=== PATIENT | male | born 1940 | race Caucasian/White ===

== ENCOUNTER → 2016-11-13 | Outpatient (CLI) | payer MEDICARE, OTHER | LOC: SL 21:11 | PROVIDERS: ATTEND Family Medicine | DX: G47.33 Obstructive sleep apnea (adult) (pediatric) (principal); R06.83 Snoring ==

== ENCOUNTER → 2016-12-21 | Outpatient (CLI) | payer MEDICARE, OTHER | END | disposition home or self-care (01) | LOC: GMAJ 12:28 | PROVIDERS: ATTEND Family Medicine | DX: N40.1 Benign prostatic hyperplasia with lower urinary tract symptoms (principal) ==

== ENCOUNTER 2017-02-18 06:13 | Day surgery (SDC) | payer MEDICARE, OTHER ==
[~2017-02-18 06:13] MED LIST: LACTATED RINGERS 1,000 ML ONE
[2017-02-18 09:11] VITALS: BP 128/68; TEMP 97.4; O2SAT 95
[2017-02-18] MEDS ORDERED: PROPOFOL 200 MG/20 ML VIAL IV ONE (12:00)
--- NOTE | 2017-02-18 13:40 | OP ---
DATE OF PROCEDURE: 02/18/17 PREOPERATIVE DIAGNOSIS: 1. Colon cancer screen. POSTOPERATIVE DIAGNOSIS: 1. Diverticulosis of the sigmoid colon. PROCEDURE: 1. Colonoscopy. SURGEON: Arnulfo Valdez MD. ANESTHESIA: MAC by Sharif Ortiz CRNA. ESTIMATED BLOOD LOSS: None. COMPLICATIONS: None apparent. TECHNIQUE: After informed consent was obtained from the patient, the patient was taken to the Endoscopy Suite and put in the left lateral decubitus position. After adequate IV sedation was obtained, a digital rectal exam was performed which revealed normal sphincter tone, no intraluminal masses, and a smooth, 1+, anodular prostate. The colonoscope was then passed with good visualization all the way through the colon. The bowel prep was good. The cecum was identified by the presence of ileocecal valve and appendiceal orifice. The scope was then withdrawn slowly over the next 10 minutes and a good look at the entire colonic wall was obtained. There were a few scattered diverticula in the sigmoid region. Otherwise, no pathology was found. The scope was removed. The patient tolerated the procedure well. The patient was transported to the outpatient area in good condition. He will followup with me on a p.r.n. basis. He is encouraged to consume a high fiber diet. #[id number] [facility]
== END 2017-02-18 09:05 | disposition home or self-care (01) ==
LOC: AMB 06:13
PROVIDERS: ATTEND Family Medicine
DX: Z12.11 Encounter for screening for malignant neoplasm of colon (principal); K57.30 Diverticulosis of large intestine without perforation or abscess without bleeding; E78.00 Pure hypercholesterolemia, unspecified; I10 Essential (primary) hypertension; I25.10 Atherosclerotic heart disease of native coronary artery without angina pectoris; G47.33 Obstructive sleep apnea (adult) (pediatric); N40.0 Benign prostatic hyperplasia without lower urinary tract symptoms; Z95.5 Presence of coronary angioplasty implant and graft; Z88.8 Allergy status to other drugs, medicaments and biological substances; Z79.02 Long term (current) use of antithrombotics/antiplatelets; Z79.82 Long term (current) use of aspirin; Z79.899 Other long term (current) drug therapy
CPT/HCPCS: 00810; G0121; J3490; J7120

== ENCOUNTER → 2017-03-21 | Outpatient (CLI) | payer MEDICARE, OTHER | END | disposition home or self-care (01) | LOC: RESP 14:34 | PROVIDERS: ATTEND Physician Assistant | DX: R00.1 Bradycardia, unspecified (principal) ==

== ENCOUNTER → 2017-03-25 | Outpatient (CLI) | payer MEDICARE, OTHER ==
--- NOTE | 2017-03-25 11:36 | CT ---
EXAM DESCRIPTION: Head CLINICAL HISTORY: 77 years, Male, DOUBLE VISION COMPARISON: None TECHNIQUE: Head CT was performed without IV contrast. This exam was performed according to our departmental dose-optimization program, which includes automated exposure control, adjustment of the mA and/or kV according to patient size and/or use of iterative reconstruction technique. FINDINGS: No acute intracranial hemorrhage. There is no midline shift or other mass effect. The ventricles and basilar cisterns are well maintained. No sellar or suprasellar mass is identified. There are mild chronic ischemic changes in the perirenal right matter, but no cortical edema or sulcal effacement is seen to suggest acute cortical infarct. No posterior fossa lesion. Vascular calcifications are noted. Visualized paranasal sinuses and orbits are clear. There is no calvarial fracture. IMPRESSION: Vascular calcifications and mild chronic ischemic changes, but no additional intracranial abnormality to explain patient symptoms. If symptoms persist or worsen, MRI may be helpful. Electronically signed by: Jeff Pitts MD 03/25/2017 11:35 AM CDT
== END | disposition home or self-care (01) ==
LOC: CT 11:12
PROVIDERS: ATTEND Family Medicine
DX: H53.2 Diplopia (principal)

== ENCOUNTER → 2017-03-27 | Outpatient (CLI) | payer MEDICARE, OTHER ==
--- NOTE | 2017-03-27 15:12 | MRI ---
Procedure: MR BRAIN WITHOUT IV CONTRAST Exam Date: 03/27/2017 Ordering Provider: KAT HICKEY Clinical Indication: DIPLOPIA Comparison: 03/25/2017 CT head Technique: Multiplanar MRI of the brain was obtained without the administration of IV contrast. Findings: Mild cerebral and cerebellar volume loss. There is no midline shift or hydrocephalus. No significant findings to suggest chronic ischemic small vessel disease. There is normal signal in the cerebellum. There is normal signal within the brainstem. There is no evidence of an acute infarct. There is no parenchymal hemorrhage. The pituitary gland is normal in size. There are no pineal masses. There are normal intracranial vascular flow voids. The craniocervical junction is unremarkable. Paranasal sinuses are unremarkable. The orbits are unremarkable. IMPRESSION: 1. No acute intracranial abnormality demonstrated. Electronically signed by: Ishan Metcalf MD 03/27/2017 3:12 PM CDT
== END | disposition home or self-care (01) ==
LOC: MRI 08:17
PROVIDERS: ATTEND Family Medicine
DX: H53.2 Diplopia (principal)

== ENCOUNTER → 2017-03-28 | Outpatient (CLI) | payer MEDICARE, OTHER | END | disposition home or self-care (01) | LOC: LAB.O 12:29 | PROVIDERS: ATTEND Psychiatry & Neurology Neurology | DX: F90.9 Attention-deficit hyperactivity disorder, unspecified type (principal); M33.90 Dermatopolymyositis, unspecified, organ involvement unspecified; F81.9 Developmental disorder of scholastic skills, unspecified; E11.9 Type 2 diabetes mellitus without complications; R53.83 Other fatigue; R50.9 Fever, unspecified ==

== ENCOUNTER → 2017-04-09 | Outpatient (CLI) | payer MEDICARE, OTHER ==
--- NOTE | 2017-04-10 11:58 | CT ---
EXAM DESCRIPTION: Chest w/Contrast CLINICAL HISTORY: MALIGNANT NEOPLASM OF THYMUS COMPARISON: May 23, 2015 TECHNIQUE: Post IV contrasted multidetector CT imaging of the chest. Multiplanar reconstructions were provided.This exam was performed according to our department minimal dose optimization program which includes automated exposure control, adjustment of mA and/or kV according to patient size and/or use of iterative reconstructed techniques. FINDINGS: No residual thymic tissue is noted on today's exam. Normal fat seen within the anterior aspect of the superior mediastinum. There remains atherosclerotic disease within the coronary vessels, aortic arch and origins of the great vessels. Heart size is at the upper limits of normal. No pericardial disease. Trachea is midline. Negative for filling defect. Bilateral lungs demonstrate no evidence of suspicious nodular mass. No pleural disease. The osseous structures on today's study are unremarkable. IMPRESSION: No residual thymic tissue on today's exam or evidence of recurrence. Severe coronary artery disease. Electronically signed by: Red Arshad MD 04/10/2017 11:57 AM CDT
== END | disposition home or self-care (01) ==
LOC: CT 10:48
PROVIDERS: ATTEND Psychiatry & Neurology Neurology
DX: C37 Malignant neoplasm of thymus (principal)

== ENCOUNTER 2017-07-02 00:56 | Emergency (ER) | payer MEDICARE, OTHER ==
[2017-07-02 01:14] VITALS: TEMP 98.7
--- NOTE | 2017-07-02 01:24 | ED.PDOC ---
History of Present Illness - General Chief Complaint: General Stated Complaint: jaundice, SOB, dizziness Time Seen by Provider: 07/02/17 01:22 Exam Limitations: no limitations - History of Present Illness Initial Comments: James Caba 77 y/o male seen initially at [facility] with complaints of feeling weak,jaundiced,difficulty walking and was diagnosed 6 months ago with presumed myasthenia gravis and had been receiving iv infusion several times in the past at [facility].Initial labs done at [facility] cbc- WBC-13.3 no left shift,hgb-8.9 [id number] cr-1.9 total bilirubin-8.3 sgot/ast-47 Lactic acid-3.5 cardiac enzymes -normal.He was brought per daughters request for ct/abd pelvis and his primary md is from here. Timing/Duration: other - 6 months ago Improving Factors: nothing Worsening Factors: movement Associated Symptoms: loss of appetite, malaise, nausea/vomiting Allergies/Adverse Reactions: Allergies NO KNOWN ALLERGY Allergy (Verified 07/02/17 01:14) Home Medications: Ambulatory Orders Aspirin [Baby Aspirin] 81 mg PO LUCRECIA-OTH-DAY 12/27/14 Clopidogrel Bisulfate [Plavix] 75 mg PO QD 12/27/14 Ergocalciferol [Vitamin D] 50,000 unit PO WKLY 12/27/14 Tadalafil [Cialis] 20 mg PO PRN 12/27/14 Amlodipine Besylate [Norvasc] 5 mg PO DAILY 12/29/14 Losartan Potassium 100 mg PO DAILY 12/29/14 Simvastatin 40 mg PO BEDTIME 12/29/14 Duloxetine HCl [Cymbalta] 60 mg PO DAILY 07/02/17 Nebivolol HCl [Bystolic] 15 mg PO DAILY 07/02/17 Silodosin [Rapaflo] 8 mg PO DAILY 07/02/17 Vitamin E 400 unit PO DAILY 07/02/17 Review of Systems - Review of Systems Constitutional: States: malaise, weakness EENTM: States: no symptoms reported Respiratory: States: no symptoms reported Cardiology: States: no symptoms reported Gastrointestinal/Abdominal: States: see HPI Genitourinary: States: no symptoms reported Musculoskeletal: States: see HPI, back pain Skin: States: no symptoms reported Endocrine: States: no symptoms reported Hematologic/Lymphatic: States: anemia Past Medical History (General) - Patient Medical History Hx Seizures: No Hx Stroke: No Hx Dementia: No Hx Asthma: No Hx of COPD: No Hx Cardiac Disorders: Yes Hx Congestive Heart Failure: No Hx Pacemaker: No Hx Hypertension: Yes Hx Thyroid Disease: No Hx Diabetes: No Hx Gastroesophageal Reflux: No Hx Renal Disease: No Hx Cancer: No Hx of HIV: No Hx Hepatitis C: No Hx MRSA: No Surgical History: no surgical history, other - Social History Hx Tobacco Use: No Hx Chewing Tobacco Use: No Hx Alcohol Use: Yes - quit 1 year ago Hx Substance Use: No Hx Substance Use Treatment: No Hx Depression: Yes Feels Threatened In Home Enviroment: No Feels Threatened In a Relationship: No Hx Physical Abuse: No Hx Emotional Abuse: No Hx Suspected Abuse: No - Activities of Daily Living Patient Lives Alone: Yes Family Medical History - Family History Mother Family History: Unknown Physical Exam - Physical Exam General Appearance: Alert, Ill Appearing Eye Exam: bilateral normal, bilateral other - icteric sclerae Ears, Nose, Throat: hearing grossly normal, normal ENT inspection Neck: non-tender, full range of motion, supple Respiratory: chest non-tender, lungs clear Cardiovascular/Chest: normal peripheral pulses, regular rate, rhythm, no murmur , tachycardia - heart [id number] Peripheral Pulses: radial,right: 1+, radial,left: 1+ Gastrointestinal/Abdominal: normal bowel sounds, non tender, soft, no organomegaly Extremity: normal range of motion, non-tender, no calf tenderness Neurologic: alert, oriented x 3 Skin Exam: normal color, warm/dry Lymphatic: no adenopathy Progress - Progress Progress: 07/02/17 02:06 Vital Signs - 8 hr 07/02/17 07/02/17 07/02/17 00:56 01:06 01:54 Temperature 98.7 F Pulse Rate [ 100 H 95 H monitor] Respiratory 20 20 Rate Blood Pressure 120/64 124/72 [Right Arm] O2 Sat by Pulse 98 98 Oximetry - Results/Orders Results/Orders: Laboratory Tests 07/02/17 07/02/17 01:25 01:25 PT 13.6 H INR 1.210 PTT (SP) 20.9 L Total Bilirubin 7.0 H* Direct Bilirubin 0.6 H Indirect Bilirubin 6.4 H - EKG/XRAY/CT CT Ordered: Yes - abd/pelvis-no acute abnormality - Additional EKG/XRAY/Consults EKG #2: Sinus, nonspecific ST T wave Chg Comments: heart rate 100 Departure - Departure Clinical Impression: Jaundice, hemolytic, D-dimer, elevated Anemia Qualifiers: Anemia type: unspecified type Qualified Code(s): D64.9 - Anemia, unspecified Time of Disposition: 04:26 - D/W Dr. Nye-Hospitalist/URS Disposition: Transfer to Hospital Departure Forms: Patient Portal Self Enrollment Referrals: Arnulfo Valdez MD [Primary Care Provider] - 1-2 Weeks Home Medications: Ambulatory Orders Aspirin [Baby Aspirin] 81 mg PO LUCRECIA-OTH-DAY 12/27/14 Clopidogrel Bisulfate [Plavix] 75 mg PO QD 12/27/14 Ergocalciferol [Vitamin D] 50,000 unit PO WKLY 12/27/14 Tadalafil [Cialis] 20 mg PO PRN 12/27/14 Amlodipine Besylate [Norvasc] 5 mg PO DAILY 12/29/14 Losartan Potassium 100 mg PO DAILY 12/29/14 Simvastatin 40 mg PO BEDTIME 12/29/14 Duloxetine HCl [Cymbalta] 60 mg PO DAILY 07/02/17 Nebivolol HCl [Bystolic] 15 mg PO DAILY 07/02/17 Silodosin [Rapaflo] 8 mg PO DAILY 07/02/17 Vitamin E 400 unit PO DAILY 07/02/17 Transfer to Outside Facility - Transfer Information Accepting Provider:: Dr. Nye Accepting Facility: [facility] Reason for Transfer: required specialist not available
--- NOTE | 2017-07-02 02:00 | CT ---
EXAM: CT abdomen and pelvis without contrast. INDICATION: Jaundice, distended abdomen. TECHNIQUE: Contiguous axial CT images of the abdomen and pelvis. Intravenous contrast: Absent. Oral contrast: Absent. DLP 857 mGy-cm. This exam was performed according to our departmental dose-optimization program, which includes automated exposure control, adjustment of the mA and/or kV according to patient size and/or use of iterative reconstruction technique. COMPARISON: None. FINDINGS: Lower chest: Partially imaged. Lung bases: Unremarkable. Cardiac apex: There are atherosclerotic calcifications of the coronary arteries Solid abdominal viscera: Limited by lack of intravenous contrast. Liver: Unremarkable. Gallbladder: Unremarkable. Pancreas: Unremarkable. Spleen: Unremarkable. Adrenal glands: Unremarkable. Right kidney: No urolithiasis or hydronephrosis. Left kidney: No urolithiasis or hydronephrosis. Urinary bladder: Unremarkable. Abdominal aorta: Atherosclerotic calcifications Peritoneal: Free fluid: None. Free air: None. Other: No pathologic sized lymph nodes in the upper abdomen. Bowel: Stomach: Unremarkable. Small bowel: Unremarkable. Appendix: Not uniquely identified, however there are no inflammatory changes within the right lower quadrant Colon: Unremarkable. Rectum: Unremarkable. Prostate: Unremarkable. Bones: Unremarkable. IMPRESSION: No acute findings. No findings to explain patient's complaint. Electronically signed by: Daryl Joy MD 07/02/2017 1:58 AM CDT Workstation: [employer]
[2017-07-02 04:17] VITALS: BP 102/58
[2017-07-02 04:55] VITALS: O2SAT 98
== END 2017-07-02 04:43 | disposition short-term general hospital (02) ==
LOC: ER 00:56
DX: D59.9 Acquired hemolytic anemia, unspecified (principal); R79.89 Other specified abnormal findings of blood chemistry; I10 Essential (primary) hypertension; Z79.82 Long term (current) use of aspirin; Z79.02 Long term (current) use of antithrombotics/antiplatelets

== ENCOUNTER → 2017-08-15 | Outpatient (CLI) | payer MEDICARE, OTHER | END | disposition home or self-care (01) | LOC: GMAJ 11:02 | PROVIDERS: ATTEND Family Medicine | DX: N40.1 Benign prostatic hyperplasia with lower urinary tract symptoms (principal) ==

== ENCOUNTER → 2017-09-13 | Outpatient (CLI) | payer MEDICARE, OTHER | END | disposition home or self-care (01) | LOC: LAB.O 14:00 | PROVIDERS: ATTEND Psychiatry & Neurology Neurology | DX: I67.9 Cerebrovascular disease, unspecified (principal); M45.0 Ankylosing spondylitis of multiple sites in spine; M35.1 Other overlap syndromes; M54.81 Occipital neuralgia; H46.9 Unspecified optic neuritis; M35.3 Polymyalgia rheumatica; M33.22 Polymyositis with myopathy ==

== ENCOUNTER → 2017-11-08 | Outpatient (CLI) | payer MEDICARE, OTHER | END | disposition home or self-care (01) | LOC: LAB.O 11:18 | PROVIDERS: ATTEND Psychiatry & Neurology Neurology | DX: I77.9 Disorder of arteries and arterioles, unspecified (principal); L40.59 Other psoriatic arthropathy; M54.12 Radiculopathy, cervical region; M54.16 Radiculopathy, lumbar region; M35.00 Sjogren syndrome, unspecified; M32.10 Systemic lupus erythematosus, organ or system involvement unspecified; M31.6 Other giant cell arteritis ==

== ENCOUNTER → 2018-01-29 | Outpatient (CLI) | payer MEDICARE, OTHER ==
--- NOTE | 2018-01-31 07:59 | RAD ---
EXAM DESCRIPTION: KUB CLINICAL HISTORY: CALCULUS OF KIDNEY COMPARISON: None Available. TECHNIQUE: KUB FINDINGS: There is an unremarkable bowel gas pattern. Pill is seen in the left side of the abdomen possibly in the descending colon. Vascular calcifications are noted in the pelvis. The bones are osteopenic. Question some linear calcifications in the left renal hilum which could be vascular. There is no mass or solid organ visceromegaly. IMPRESSION: No acute process. Electronically signed by: Scooter Davis MD 01/31/2018 7:56 AM CDT
== END ==
LOC: LAB.O 15:29
PROVIDERS: ATTEND Urology
DX: R97.20 Elevated prostate specific antigen [PSA] (principal); N20.0 Calculus of kidney

== ENCOUNTER → 2018-04-08 | Outpatient (CLI) | payer MEDICARE, OTHER ==
--- NOTE | 2018-04-08 14:25 | CT ---
EXAM DESCRIPTION: Abdomen/Pelvis w/o Contrast: Computed Tomography. CLINICAL HISTORY: SPLENOMEGALY COMPARISON: CT abdomen and pelvis without contrast TECHNIQUE: Spiral-axial scans 5.0 mm intervals through the abdomen and pelvis without oral or IV contrast. Coronal and sagittal 2.0 mm reconstructions. Total Exam DLP: 1298.07 mGy-cm. This exam was performed according to our departmental CT dose-optimization program which includes automated exposure control, adjustment of the mA and/or kV according to patient size and/or use of iterative reconstruction technique; to reduce radiation dose to as low as reasonably achievable (ALARA). FINDINGS: Lung bases and pleura: Negative lungs and pleura. Coronary artery calcifications and/or stents. Liver, stomach, spleen, and adrenal glands: Spleen measures 9.5 cm transverse and 11.1 cm craniocaudal with homogeneous density. Stomach unremarkable. Other solid organs are negative. Pancreas, Gallbladder, and Ducts: Gallbladder is visualized. Other organs are unremarkable. Kidneys and Ureters: Stable cyst posterior medial left kidney. No hydronephrosis or radiodense stones. Stable perirenal stranding is likely physiologic. Ureters negative. Mesentery: No free air or free fluid. Aorta: Advanced atherosclerotic calcification with mid and distal aortic luminal narrowing extending into the bilateral common iliac arteries. Calcification of the ostia of the major branch vessels. Small Bowel: Negative. Terminal Ileum/Cecum: Unremarkable. Appendix not seen. Colon: Small diverticula in distal colon. Pelvic Organs: Negative. Spine and Bony Pelvis: Gas density in the L5-S1 disc and bulging of the L4-5 disc with trace anterolisthesis and bilateral foraminal narrowing. Abdominal Wall/Back Soft Tissues: Minimal diastases at the umbilical region but no hernia. IMPRESSION: 1. Spleen is not enlarged. Slightly smaller than on the prior study. No hepatic enlargement. No ascites. No dominant peritoneal or retroperitoneal lymph nodes or periaortic nodes. 2. Advanced atherosclerotic disease of the mid and distal aorta and bilateral common iliac arteries and the ostia of the major branch vessels. Stable since the prior study. Correlate for risk of ischemic disease in the abdomen and pelvis and bilateral lower extremity peripheral arterial disease 3. Desiccation L5-S1 disc and trace anterolisthesis L4-5. 4. Stable cyst medial left kidney.. Electronically signed by: Trino Cheung MD 04/08/2018 2:24 PM CDT
== END ==
LOC: CT 08:30
PROVIDERS: ATTEND Nurse Practitioner Family
DX: R16.1 Splenomegaly, not elsewhere classified (principal); I70.0 Atherosclerosis of aorta; N28.1 Cyst of kidney, acquired

== ENCOUNTER → 2018-04-14 | Outpatient (CLI) | payer MEDICARE, OTHER ==
--- NOTE | 2018-04-14 12:00 | US ---
EXAM DESCRIPTION: Abdomen,Complete: Ultrasound. CLINICAL HISTORY: SPLENOMEGALY COMPARISON: None Available. TECHNIQUE: Transabdominal scannin-dimensional and Doppler modes. FINDINGS: Gallbladder: Wall is borderline thickened. Normal internal echoes and size. No fluid around the wall. Nontender with transducer pressure. Common bile duct: 4.9 mm normal caliber. Liver: Normal echogenicity. Long axis of the right lobe 15.8 cm. Normal caliber and hepatopedal flow in the portal vein. Smooth capsule. No intrahepatic biliary dilatation. Pancreas: Normal size and echogenicity. Normal caliber of the pancreatic duct.. Abdominal aorta: Normal caliber from the proximal segment to the distal bifurcation. IVC: visualized; normal caliber. Spleen normal echogenicity; long axis measurement is 11.0 cm. Right kidney: 10.6 cm long axis. Normal cortical thickness and echoes. No hydronephrosis. Left kidney: 10.5 cm long axis. Normal cortical thickness and echoes. 11 cm cyst in the mid kidney. No hydronephrosis. IMPRESSION: 1. Borderline wall thickening gallbladder but no internal echoes. Nontender with transducer pressure. Normal caliber of the common bile duct 2. Normal ultrasound of the liver pancreas spleen and right kidney. No ascites. 3. 11 mm cyst in the left kidney, otherwise unremarkable. Electronically signed by: Trino Cheung MD 04/14/2018 11:59 AM CDT
== END ==
LOC: US 08:12
PROVIDERS: ATTEND Family Medicine
DX: R16.1 Splenomegaly, not elsewhere classified (principal); N28.1 Cyst of kidney, acquired

== ENCOUNTER → 2018-10-03 | Outpatient (CLI) | payer MEDICARE, BC | LOC: GMAJ 13:15 | PROVIDERS: ATTEND Family Medicine | DX: N40.1 Benign prostatic hyperplasia with lower urinary tract symptoms (principal) ==

== ENCOUNTER → 2018-11-13 | Outpatient (CLI) | payer MEDICARE, BC ==
--- NOTE | 2018-11-13 15:16 | MRI ---
EXAM DESCRIPTION: Cervical Spine: MRI. CLINICAL HISTORY: 78 years Male M50.10 COMPARISON: MRI cervical spine 11/23/2014. TECHNIQUE: Multiplanar, high-field MRI, multiple sequences, non-contrast Cervical spine. FINDINGS: C2-3: Disc desiccation with posterior broad-based bulge containing bright T2-weighted signal indicating annular fissure. Mild narrowing of the canal. Bilateral foramina are patent. Moderate arthrosis right facet and mild arthrosis left facet. C3-4: Mild disc desiccation with minimal anterior bulge. 2 mm grade 1 anterolisthesis. Posterior midline tiny bulge almost abutting the cord. Mild left facet arthrosis. Left uncinate spur. Moderate left neural foraminal narrowing and mild right neural foraminal narrowing. C4-5: Disc desiccation and minimal disc space loss. Minimal anterior bulging. Posterior midline 3 mm disc bulge focally abutting the ventral cord. Mild canal narrowing. Bilateral uncinate spurs. Mild bilateral facet arthrosis. Bilateral mild to moderate neural foraminal narrowing. C5-6: Mild disc desiccation. Disc space preserved. Posterior 3 to 4 mm focal disc protrusion impressing on the ventral cord. Moderate canal narrowing. No uncinate spurs. Mild left neural foraminal narrowing and mild to moderate right neural foraminal narrowing. Bilateral facet arthrosis more on the right. C6-7: Disc desiccation with disc space preserved. Posterior midline bulge with tiny bright T2 annular fissure. Not touching the cord. Right uncinate spur. Left neuroforamen patent with right neuroforamen mild to moderate narrowing. Mild canal narrowing. Mild bilateral facet arthrosis more on the right. C7-T1: Disc desiccation. Trace posterior bulge. Bilateral facets unremarkable. No canal or neural foraminal stenosis. Normal signal in the T1-T2 disc with no bulging. Disc spaces preserved. Canal and neural foramina are patent. Facets unremarkable. Spinal alignment minimally lordotic. No cord compression or cord edema. Atlantoaxial joint . Mild posterior hypertrophy. Base of the cerebellar tonsils is above the foramen magnum. Paravertebral soft tissues are negative. Vertebral bodies are not compressed at any level. Normal marrow signal in the remaining vertebral bodies and the posterior elements. IMPRESSION: 1. Multiple levels of disc desiccation with posterior disc bulge. Annular fissure in the posterior midline C2-3 disc and the posterior midline C6-7 disc. 2. Posterior 3 to 4 mm focal C5-6 disc protrusion impresses on the ventral cord. Moderate canal narrowing. Moderate right neural foraminal narrowing. Correlate for unilateral or bilateral C6 radiculopathy. 3. Posterior midline C4-5 focal desiccated disc bulge. Bilateral mild to moderate neural foraminal narrowing. Mild bilateral facet arthrosis. Electronically signed by: Trino Cheung MD 11/13/2018 3:15 PM [facility]
== END ==
LOC: MRI 14:02
PROVIDERS: ATTEND Family Medicine
DX: M50.10 Cervical disc disorder with radiculopathy, unspecified cervical region (principal)

== ENCOUNTER → 2019-01-30 | Outpatient (CLI) | payer MEDICARE ==
--- NOTE | 2019-02-01 13:11 | RAD ---
EXAM: Hand,Left 3 Views CLINICAL HISTORY: M25.512, M79.642 COMPARISON STUDY: None TECHNICAL: AP, lateral and oblique x-rays of the left hand FINDINGS: There are severe osteoarthritic changes at the articulation of the trapezium and first metacarpal. There is joint space loss, subchondral sclerosis and periarticular osteophytic changes. There is a fracture involving the tip of the fifth distal phalanx with corticated margins suggesting chronicity. Lack of a recent injury should exclude acute injury. There are chronic changes of the fourth distal phalanx. Mild osteoarthritic changes of the distal interphalangeal joints are present. IMPRESSION: 1. Probable old fracture of the fourth and fifth distal phalanges. 2. 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 Electronically signed by: Lew Ellington MD 02/01/2019 1:07 PM CDT
--- NOTE | 2019-02-01 13:12 | RAD ---
EXAM: Shoulder,Left 2 or More Views CLINICAL HISTORY: M25.512, M79.642 COMPARISON STUDY: None TECHNICAL: Axillary, scapular Y, internal and external rotation images. FINDINGS: There is no fracture and no dislocation. There is no acute osseous abnormality. There are moderate degenerative changes of the acromioclavicular joint. Inferior projecting osteophytes can cause impingement symptoms. The visible chest is negative. IMPRESSION: MODERATE AC JOINT DEGENERATIVE CHANGES, OTHERWISE NEGATIVE SHOULDER. Electronically signed by: Lew Ellington MD 02/01/2019 1:09 PM CDT
== END ==
LOC: RAD 09:32
PROVIDERS: ATTEND Orthopaedic Surgery
DX: Z01.818 Encounter for other preprocedural examination (principal); M18.52 Other unilateral secondary osteoarthritis of first carpometacarpal joint, left hand; M79.642 Pain in left hand; M25.512 Pain in left shoulder

== ENCOUNTER → 2019-04-30 | Outpatient (CLI) | payer MEDICARE | LOC: GMAJ 09:35 | PROVIDERS: ATTEND Family Medicine | DX: E53.8 Deficiency of other specified B group vitamins (principal); R53.83 Other fatigue; E55.9 Vitamin D deficiency, unspecified; I10 Essential (primary) hypertension; E78.00 Pure hypercholesterolemia, unspecified; E11.9 Type 2 diabetes mellitus without complications; R06.02 Shortness of breath; R52 Pain, unspecified; R68.89 Other general symptoms and signs ==

== ENCOUNTER → 2019-10-20 | Outpatient (CLI) | payer MEDICARE ==
--- NOTE | 2019-10-21 10:50 | MRI ---
Study: MRI of the Left Shoulder. 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 Comparison: None. Findings: Severe hypertrophic AC joint osteoarthritis. Type II acromion with moderate lateral downsloping. Moderate the large volume subacromial/subdeltoid bursal fluid. High-grade supraspinatus and infraspinatus tendinosis with irregular high-grade bursal/interstitial tearing of the anterior two thirds supraspinatus tendon insertion. Involved area measures 17 mm AP by 10 mm transverse. No tendon retraction. Subscapularis tendinosis with intermediate grade articular tearing superiorly. Teres minor tendon intact. Mild atrophy and grade 1 fatty infiltration rotator cuff musculature. Long head biceps tendinosis and longitudinal fissuring with partial medial subluxation onto the lesser tuberosity. Circumferential labral truncation/degeneration. Mild glenohumeral joint osteoarthritis and tiny joint effusion. No acute fracture. Thickening and edema inferior glenohumeral ligament which can be seen with adhesive capsulitis. Impression: High-grade supraspinatus and infraspinatus tendinosis with irregular high-grade bursal/interstitial tearing of the anterior supraspinatus tendon insertion. Subscapularis tendinosis with intermediate grade articular tearing superiorly. Mild atrophy and grade 1 fatty infiltration rotator cuff musculature. Long head biceps tendinosis, longitudinal fissuring, and partial medial subluxation. Circumferential labral truncation and degeneration. Mild glenohumeral joint osteoarthritis with tiny joint effusion. 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 Electronically signed by: Bk Montoya MD 10/21/2019 10:48 AM [facility]
== END ==
LOC: MRI 14:00
PROVIDERS: ATTEND Orthopaedic Surgery
DX: M75.102 Unspecified rotator cuff tear or rupture of left shoulder, not specified as traumatic (principal); M75.82 Other shoulder lesions, left shoulder; M75.22 Bicipital tendinitis, left shoulder; M75.01 Adhesive capsulitis of right shoulder; M19.012 Primary osteoarthritis, left shoulder; S43.392A Subluxation of other parts of left shoulder girdle, initial encounter; M62.512 Muscle wasting and atrophy, not elsewhere classified, left shoulder

== ENCOUNTER → 2019-12-08 | Outpatient (CLI) | payer MEDICARE | LOC: LAB.O 14:00 | PROVIDERS: ATTEND Orthopaedic Surgery | DX: Z01.818 Encounter for other preprocedural examination (principal) ==

== ENCOUNTER → 2019-12-15 | Outpatient (CLI) | payer MEDICARE ==
--- NOTE | 2019-12-16 12:14 | CT ---
EXAM DESCRIPTION: Chest w/Contrast CLINICAL HISTORY: 79 years Male, OTHER NONDPECIFIC ABNORMMAL FINDING OF LUNG FLUID TECHNIQUE: This exam was performed according to our departmental dose-optimization program, which includes automated exposure control, adjustment of the mA and/or kV according to patient size and/or use of iterative reconstruction technique. COMPARISON: 12/08/2019 FINDINGS: The thyroid gland is unremarkable. No axillary adenopathy. Atherosclerotic plaque in the normal caliber thoracic aorta. Dense coronary artery and aortic valvular calcifications. No pericardial No evidence of acute process in the visualized upper abdomen. No mediastinal adenopathy. The pulmonary arteries are unremarkable. No pneumothorax. No pleural effusion. No focal consolidation or suspicious pulmonary nodule identified. The previously described density in the right lung base has either resolved or is accounted for by overlapping structures. No acute or suspicious osseous abnormality. Scattered degenerative changes present. IMPRESSION: No evidence of acute process in the chest. Electronically signed by: Candelario Baumann MD 12/16/2019 12:12 PM [employer]
== END ==
LOC: CT 11:06
PROVIDERS: ATTEND Family Medicine
DX: R91.8 Other nonspecific abnormal finding of lung field (principal)

== ENCOUNTER → 2020-04-01 | Outpatient (CLI) | payer MEDICARE ==
--- NOTE | 2020-04-01 13:14 | CT ---
EXAM DESCRIPTION: Pelvis w/Contrast: Computed Tomography. CLINICAL HISTORY: CONTUSION OF RT THIGH COMPARISON: MM pelvis CT scan without contrast April 2018. TECHNIQUE: Spiral-axial scans 2.5 x 2.5 mm intervals through the pelvis: no water soluble barium contrast; 75 mL Optiray 320 nonionic IV contrast. Coronal and sagittal 2.0 mm reconstructions. 2 minute delay. Total Exam DLP: 1433 mGy-cm. This exam was performed according to our departmental CT dose-optimization program which includes automated exposure control, adjustment of the mA and/or kV according to patient size and/or use of iterative reconstruction technique; to reduce radiation dose to as low as reasonably achievable (ALARA). FINDINGS: Pelvic Organs: Small urinary bladder with no radiodense stones. Prostate gland abutting the base of the urinary bladder with central calcifications well-defined capsule not abutting the pelvic muscular sidewalls. No pelvic adenopathy. Mesentery: No free fluid or free air. No fatty stranding fashion thickening. Small Bowel: Included segments not distended. Terminal Ileum: Normal caliber with IC valve negative. Cecum: Normal caliber and containing fecal matter. Colon: Normal caliber of the ascending colon. Minimal fecal matter in the rectosigmoid with diverticula. No complications. Spine and Bony Pelvis: No displaced or cortical fractures. Bilateral SI joint arthrosis. Narrowing of the bilateral hip joints. Cystic changes in the superior-lateral left acetabulum. Arthrosis in the pubic symphysis. Spondylosis L5-S1 with bilateral facet arthrosis and bulging disc. Inguinal Canals: No fluid or hernia. Bilateral inguinal lymph nodes. Pelvic Wall/Back Soft Tissues: Minimal edema in the medial adipose tissue of the right thigh. Edema around the proximal origin of the right gracilis muscle (anterior right pubic bone) with increased enhancement centrally and disruption of the adjacent fibers with effacement of the fatty fibers. This extends approximately 12 cm from the origin to the inferior margin of the study. With majority of the abnormal anatomy in the proximal two thirds of the muscle. No abnormal enhancement distal to this level. Muscle is also enlarged compared to the contralateral left gracilis muscle and no soft tissue calcifications or fluid collection. IMPRESSION: 1. Partial tear of the musculotendinous junction and proximal muscle belly of the right gracilis muscle in the thigh adductor group. Minimal enhancement. No large mass. Adjacent fatty edema and stranding. No calcifications or fluid collection. Remaining muscles of the adductor group unremarkable. 2. Prostate gland abutting the urinary bladder. Calcifications in the central gland. 3. Bony degenerative changes in the spine and pelvis as noted. CRITICAL COMMUNICATION: The critical value was communicated directly by Dr. Cheung via phone call, with Dr. Kodi Valdez, at approximately 1305 hours, on 04/01/2020. Electronically signed by: Trino Cheung MD 04/01/2020 1:12 PM CDT
== END ==
LOC: CT 11:25
PROVIDERS: ATTEND Family Medicine
DX: S76.211A Strain of adductor muscle, fascia and tendon of right thigh, initial encounter (principal); M47.897 Other spondylosis, lumbosacral region; R60.9 Edema, unspecified; N42.9 Disorder of prostate, unspecified; R23.3 Spontaneous ecchymoses

== ENCOUNTER → 2020-08-08 | Outpatient (CLI) | payer MEDICARE | LOC: LAB.O 14:23 | PROVIDERS: ATTEND Orthopaedic Surgery | DX: Z01.818 Encounter for other preprocedural examination (principal) ==

== ENCOUNTER 2020-08-16 05:31 | Day surgery (SDC) | payer MEDICARE ==
[2020-08-16] MEDS ORDERED: LACTATED RINGERS 1,000 ML ONE (05:59)
[2020-08-16] MEDS ORDERED: SODIUM CHL 0.9% 100ML MINI-BAG 100 ML IVPB ONE (05:59)
[2020-08-16] MEDS ORDERED: ceFAZolin SODIUM 1 GM VIAL ONE ×2 (05:59→10:27)
[2020-08-16] MEDS ORDERED: DEXAMETHASONE INJ 10 MG/ML VIAL ONE (07:00)
[2020-08-16] MEDS ORDERED: PROPOFOL 200 MG/20 ML VIAL IV ONE (07:00)
[2020-08-16] MEDS ORDERED: MIDAZOLAM INJ 2 MG/2 ML VIAL ONE (07:00)
[2020-08-16] MEDS ORDERED: MAGNESIUM SULFATE INJ 1 GM/2 ML VIAL ONE (07:00)
[2020-08-16] MEDS ORDERED: LIDOCAINE 1% 10 ML VIAL INJ ONE (07:00)
[2020-08-16] MEDS ORDERED: BUPIVACAINE 0.5% 30 ML VIAL INJ ONE ×2 (10:27→12:21)
[2020-08-16] MEDS ORDERED: VANCOMYCIN HCL INJ 1,000 MG VIAL IVPB ONE ×2 (10:27→12:21)
[2020-08-16] MEDS ORDERED: BUPIVACAINE LIPOSOME 13.3 MG/ML VIAL INJ ONE ×2 (10:27→12:21)
[2020-08-16] MEDS ORDERED: ceFAZolin SODIUM 1 GM VIAL IRRIG ONE (12:21)
[2020-08-16 14:40] VITALS: O2SAT 97
[2020-08-16 15:30] VITALS: BP 144/72; TEMP 96.5
--- NOTE | 2020-08-22 09:10 | OP ---
DATE OF PROCEDURE: 08/16/20 PREOPERATIVE DIAGNOSIS: 1. Rotator cuff tear. POSTOPERATIVE DIAGNOSIS: 1. Rotator cuff tear. PROCEDURE: 1. Rotator cuff repair. SURGEON: Kaleb Barkley MD. THREAD PULLING MACHINE ATTENDANT: Trino Michel CST, SA-C. ANESTHESIA: General anesthesia. COMPLICATIONS: None. FINDINGS: Approximately 2 cm tear of the anterior aspect of the supraspinatus. INDICATION: Mr. Caba has a long history of shoulder pain that has been refractory to conservative measures. Because of his ongoing pain, he has requested operative intervention. After discussing the risks, benefits and alternatives to operative therapy, the patient has given informed consent for rotator cuff repair. PROCEDURE: The patient was brought to the Operating Room and placed in the supine position. General anesthesia was induced and the patient's the arm was sterilely prepped and draped. Following prepping and draping, an incision was made at the lateral border of the acromion. Full thickness skin flaps were developed and the deltoid was identified. The deltoid was split between the anterior and middle heads. The rotator cuff was identified and fully inspected. The aforementioned tear was noted. Following that, the bony footprint of the rotator cuff insertion was debrided. The tendon end was debrided and a SpeedBridge type construct was used to repair the cuff. The arm was taken through a range of motion and there was no instability of the repair. The wound was very thoroughly irrigated and the deltoid was reapproximated. The wound was closed with a combination of running and interrupted subcuticular stitches. Sterile dressings were placed. The patient was awoken from anesthesia and taken to Recovery. POSTOPERATIVE PLAN: He will limit range of motion of the arm and will followup with us in two days. We will start therapy about one week afterwards for passive range of motion. #[id number] [facility]
== END 2020-08-16 15:23 | disposition home or self-care (01) ==
LOC: AMB 05:31
PROVIDERS: ATTEND Orthopaedic Surgery
DX: M75.102 Unspecified rotator cuff tear or rupture of left shoulder, not specified as traumatic (principal); M75.42 Impingement syndrome of left shoulder; I10 Essential (primary) hypertension; M19.90 Unspecified osteoarthritis, unspecified site; Z79.82 Long term (current) use of aspirin; Z79.899 Other long term (current) drug therapy
CPT/HCPCS: 01630; 23420; 80307; 81001; J0690; J1100; J2250; J3370; J3475; J3490; J7050; J7120

== ENCOUNTER 2020-11-17 05:32 | Day surgery (SDC) | payer MEDICARE ==
[2020-11-17] MEDS ORDERED: LACTATED RINGERS 1,000 ML ONE (06:33)
[2020-11-17] MEDS ORDERED: PROPOFOL 200 MG/20 ML VIAL IV ONE (07:00)
[2020-11-17] MEDS ORDERED: LIDOCAINE 1% 10 ML VIAL INJ ONE (07:00)
[2020-11-17] MEDS: BUPIVACAINE 0.5% 30 ML VIAL INJ ONE ×2 (09:19→09:31)
[2020-11-17] MEDS: SODIUM BICARBONATE VIAL 50 MEQ/50 ML VIAL ONE ×2 (09:19→09:32)
[2020-11-17] MEDS: LIDOCAINE 1% 10 ML VIAL INJ ONE ×2 (09:19→09:32)
[2020-11-17] MEDS ORDERED: NEOMYCIN-BACITRACIN-POLYMYXIN 0.9 GM UD TOP ONE (09:30)
[2020-11-17 09:50] VITALS: O2SAT 98
[2020-11-17 10:21] VITALS: BP 130/74; TEMP 96.9
--- NOTE | 2020-11-17 10:39 | OP ---
DATE OF PROCEDURE: 11/17/20 PREOPERATIVE DIAGNOSIS: 1. 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 POSTOPERATIVE DIAGNOSIS: 1. 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 PROCEDURE: 1. Excision of malignant lesion with subcutaneous tissue, measurement 3.5x3 cm. SURGEON: Arnulfo Heller MD ANESTHESIA: Local with IV sedation. FINDINGS: As described. PROCEDURE: The patient was given IV sedation. 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 This had been treated sometime last year with some local treatment, but it has recently begun to return and advance. I discussed the different options with the patient, particularly we will remove the lesion, cauterize the edges and keep it open. It would be difficult to close the lesion where it is right now. Local anesthesia was placed. It was marked for excision on the edge of the visible tumor. Elliptical type incision was made. We were able to get it off the underlying tissue over the joint without any evidence of invasion to the deep tissue. It came off very nicely in that plane. No evidence of tumor on the edges, but it is close, so we cauterized these edges. We looked at if the wound could close nicely, but there was too much tension and it would be very hard, especially in this area that flexes, so we will leave it open to heal by secondary intention. The patient tolerated the procedure. There was good hemostasis. He was taken to Recovery to be discharged. #[id number] cc: Arnulfo Valdez MD [facility]
== END 2020-11-17 10:13 | disposition home or self-care (01) ==
LOC: AMB 05:32
PROVIDERS: ATTEND Surgery
DX: C44.622 Squamous cell carcinoma of skin of right upper limb, including shoulder (principal); E11.9 Type 2 diabetes mellitus without complications; I10 Essential (primary) hypertension; Z79.82 Long term (current) use of aspirin; Z79.899 Other long term (current) drug therapy
CPT/HCPCS: 00400; 11624; 88305; J3490; J7120